=== PATIENT | female | born 1955 | race African-American/Black ===

== ENCOUNTER 2023-08-28 10:27 | Emergency (ER) | payer OTHER, MEDICAID ==
[~2023-08-28] VITALS: Ht 157.5 cm; Wt 59.0 kg
[~2023-08-28 10:27] MED LIST: CLON0.1T14; HYDR-1421; SIMV10TA20; TRAZ-228
[2023-08-28 10:53] VITALS: BP 152/86; PULSE 71; RESP 16; TEMP 97.8; O2SAT 98
[2023-08-28] MEDS: HYDROcodone-ACET 5/325MG TAB PO ONE (11:02)
[2023-08-28] MEDS ORDERED: TRAM-626 PO (11:48)
== END 2023-08-28 11:55 | disposition home or self-care (01) ==
LOC: ER 10:27 → EDBD 10:27 → ER 11:55
DX: S39.012A Strain of muscle, fascia and tendon of lower back, initial encounter (principal); S76.011A Strain of muscle, fascia and tendon of right hip, initial encounter; I10 Essential (primary) hypertension; E78.5 Hyperlipidemia, unspecified; Z79.899 Other long term (current) drug therapy; W18.39XA Other fall on same level, initial encounter; Y93.89 Activity, other specified; Y92.89 Other specified places as the place of occurrence of the external cause; Y99.8 Other external cause status
CPT/HCPCS: 72100; 73502